=== PATIENT | female | born 1990 | race Caucasian/White ===

== ENCOUNTER 2017-01-26 09:14 | Emergency (ER) | payer OTHER ==
[~2017-01-26] VITALS: Ht 167.6 cm; Wt 112.4 kg
[~2017-01-26 09:14] MED LIST: AZITHROMYCIN250 MG1 PO; Ambien PO; CLINDAMYCIN HC300 MG PO; Feosol PO; HYDROCODON-ACE1 EAC7 PO; INDOCIN25 MG PO; JOLESSA1 EACH PO; KEFLEX500 MG PO; MOTRIN800 MG PO; Motrin PO; NAPROSYN500 MG PO; NOHOMEMEDS; NORCO 7.5/321 TABLET PO; Natalcare Rx,Pramile PO; Ortho Cyclen 28 PO; PREDNISONE10 MG PO; PROVENTIL HFA6.7 GM IH; ROBITUSSIN AC,T10 ML PO; TYLENOL EXTRA500 MG PO; TYLENOL WITH C1 EACH PO; ULTRACET1 TABLET PO; [UNRECOGNIZED DRUG - OTHER]
[2017-01-26] MEDS ORDERED: [UNRECOGNIZED DRUG - OTHER] (10:52)
[2017-01-26] MEDS ORDERED: PREDNISONE50 MG PO (10:54)
[2017-01-26 11:25] VITALS: BP 132/91
== END 2017-01-26 11:25 | disposition home or self-care (01) ==
LOC: EME 09:14 → EXP 09:14
DX: M25.531 Pain in right wrist (principal); R20.2 Paresthesia of skin; Z98.890 Other specified postprocedural states; Z72.0 Tobacco use
CPT/HCPCS: 73110; 99281; 99283